=== PATIENT | female | born 1960 | race Caucasian/White ===

== ENCOUNTER → 2023-08-28 09:01 | Outpatient (REF) | payer OTHER, SELFPAY | LOC: HWRAD 09:01 | PROVIDERS: ATTENDING PHYSICIAN Internal Medicine Endocrinology, Diabetes & Metabolism; FAMILY PHYSICIAN Physician Assistant Medical | DX: E04.2 Nontoxic multinodular goiter (principal) | CPT/HCPCS: 76536 ==

== ENCOUNTER → 2023-09-03 08:13 | Outpatient (REF) | payer OTHER, SELFPAY | LOC: HWWDC 08:13 | PROVIDERS: ATTENDING PHYSICIAN Obstetrics & Gynecology; FAMILY PHYSICIAN Physician Assistant Medical | DX: Z12.31 Encounter for screening mammogram for malignant neoplasm of breast (principal) | CPT/HCPCS: 77063; 77067 ==

== ENCOUNTER → 2024-08-07 07:22 | Outpatient (REF) | payer OTHER, SELFPAY | LOC: HWRAD 07:22 | PROVIDERS: ATTENDING PHYSICIAN Internal Medicine Endocrinology, Diabetes & Metabolism; FAMILY PHYSICIAN Family Medicine | DX: E04.2 Nontoxic multinodular goiter (principal) | CPT/HCPCS: 76536 ==

== ENCOUNTER → 2024-09-03 07:23 | Outpatient (REF) | payer OTHER, SELFPAY | LOC: HWWDC 07:23 | PROVIDERS: ATTENDING PHYSICIAN Nurse Practitioner Family; FAMILY PHYSICIAN Family Medicine | DX: Z12.31 Encounter for screening mammogram for malignant neoplasm of breast (principal) | CPT/HCPCS: 77063; 77067 ==

== ENCOUNTER → 2024-11-05 17:11 | Outpatient (REF) | payer OTHER, SELFPAY | LOC: RAD 17:11 | PROVIDERS: ATTENDING PHYSICIAN Student in an Organized Health Care Education/Training Program; FAMILY PHYSICIAN Physician Assistant Medical | DX: R10.32 Left lower quadrant pain (principal); R10.2 Pelvic and perineal pain | CPT/HCPCS: 74177; Q9967 ==